=== PATIENT | male | born 1975 | race Caucasian/White ===

== ENCOUNTER 2021-11-03 21:02 | Observation (INO) | payer BC, SELFPAY ==
--- NOTE | ~2021-11-03 | CT_ITS ---
EXAMINATION: CT abdomen pelvis w con DATE: 11/03/2021 22:41 INDICATION: Abdominal pain TECHNIQUE: Computed tomography (CT) of the abdomen and pelvis was performed with 100 mL Omnipaque-350 intravenous contrast. Automated exposure control and iterative reconstruction technique were employe d. The dose-length product was 717.95 mGy-cm. COMPARISON: None FINDINGS: Lung bases are clear. Heart size is normal. Atherosclerotic coronary artery calcification. No pericar dial or pleural effusion. Small sliding-type hiatal hernia. Postoperative change of prior gastric byp ass procedure. Liver, gallbladder, spleen, pancreas, bilateral adrenal glands and kidneys are normal. Normal appendix. There is mild dilation of a a couple loops of the Gene limb of the gastric bypass w hich intermittently decrease to normal caliber proximal to the anastomosis with no discrete transitio n point to suggest obstruction. There is mild wall thickening along the root accounting for the degre e of distention. There is decompressed small bowel in either side of a likely transient small bowel i ntussusception in the central pelvis. Small amount of stool in the proximal colon to the mid to dista l colon relatively decompressed. Bladder is decompressed. No free intraperitoneal gas or fluid. No pa thologically enlarged abdominal or pelvic lymphadenopathy. IMPRESSION: 1. Mild dilation and mild wall thickening of the Gene limb of the gastric bypass procedure without di screte transition point to suggest obstruction is the be related to either an ileus or enteritis. 2. Likely transient small bowel intussusception in the pelvis without associated obstruction. Reviewed, dictated and finalized at location A. OR ERP CONSULTANT IMPRESSION: 1. Mild dilation and mild wall thickening of the Gene limb of the gastric bypas s procedure without discrete transition point to suggest obstruction is the be related to either an ileus or enteritis. 2. Likely transient small bowel intussusception in the pelvis without associate d obstruction.
[2021-11-03 21:04] VITALS: BP 130/81; PULSE 64; RESP 20; TEMP 36.3; O2SAT 100
[2021-11-03 21:20] LABS: Basophils Percent Auto 0.4 % (0.2-1.2); Eosinophils Absolute Auto 0.2 K/mm3 (0-0.3); Eosinophils Percent Auto 1.4 % (0-4.4); Hematocrit 36.3 % (42.0-52.0); Hemoglobin 12.2 g/dL (14.0-18.0); Immature Granulocyte Absolute 0.03 K/mm3 (0.00-0.031); Immature Granulocyte Percent A 0.3 % (0-0.5); Lymphocytes Absolute Auto 5.43 K/mm3 (0.9-3.2); Lymphocytes Percent Auto 49.2 % (18.3-44.2); Mean Corpuscular HGB Conc 33.6 g/dl (32-36); Mean Corpuscular Hemoglobin 31.4 pg (26-34); Mean Corpuscular Volume 93.3 fl (80-100); Mean Platelet Volume 9.3 fl (7.4-10.4); Monocytes Percent Auto 8.9 % (2.6-8.5); Neutrophils Absolute Auto 4.4 K/mm3 (1.3-6.7); Neutrophils Percent Auto 39.8 % (45.5-73.1); Platelet Count Result 255 k/mm3 (150-375); Red Blood Count 3.89 M/mm3 (4.6-6.20); Red Cell Distribution Width 12.3 % (11.5-14.5)
[2021-11-03 21:21] VITALS: O2SAT 100
[2021-11-03 21:22] VITALS: BP 130/77; O2SAT 100
[2021-11-03 21:29] LABS: Alanine Aminotransferase 31 U/L (4-50); Albumin Level 4.2 g/dL (3.5-5.1); Alkaline Phosphatase 73 U/L (38-126); Anion Gap 7 mmol/L (8-16); Aspartate Amino Transferase 44 U/L (17-59); Bilirubin,Total 0.3 mg/dL (0.2-1.3); Blood Urea Nitrogen 20 mg/dL (9-20); Carbon Dioxide 27 mmol/L (22-30); Chloride 104 mmol/L (98-107); Estimated CRCL calculation 61 ml/min; Estimated Glomerular Filt Rate 55; Glucose 199 mg/dL (65-110); Lipase 138 U/L (23-300); Potassium 3.8 mmol/L (3.4-5.0); Sodium 138 mmol/L (137-145)
[2021-11-03 21:30] VITALS: O2SAT 100
--- NOTE | 2021-11-03 21:47 | ED.NAVMDI ---
HPI - Nausea/Vomiting/Diarrhea General Chief complaint: Nausea/Vomiting/Diarrhea Stated complaint: vomiting Time Seen by Provider: 11/03/21 21:27 Source: patient Mode of arrival: ambulatory Limitations: no limitations History of Present Illness HPI Narrative: 46-year-old male presents today with complaints of nausea vomiting and abdominal pain that started after eating [employer]. Patient states he was only one who ate off of his plate but another person at his table did not have the same thing. As far as he is aware nobody also said. Patient with history of surgeries of abdomen, last surgery a couple months ago for a twisted bowel . Surgery was done in [facility] in [place]. Related Data Allergies Allergy/AdvReac Type Severity Reaction Status Date / Time NSAIDS (Non-Steroidal AdvReac upset Verified 11/03/21 21:46 Anti-Inflamma stomach Review of Systems Review of Systems: CONSTITUTIONAL: Denies fever, chills, or sweats. EYES: Denies visual changes, redness, or discharge. ENT: Denies rhinorrhea, congestion, sore throat, or otalgia. CARDIOVASCULAR: Denies chest pain, palpitations, or edema. RESPIRATORY: Denies cough or dyspnea. GASTROINTESTINAL: Positive for abdominal pain, nausea, and vomiting. Denies diarrhea. GENITOURINARY: Denies dysuria or hematuria. SKIN: Denies rash or itching. MUSCULOSKELETAL: Denies back pain, joint pain, or myalgia. NEUROLOGIC: Denies headache, numbness, dizziness, or weakness. PSYCHIATRIC: Denies anxiety or depression. [facility] Past Medical History Medical History (Updated 11/04/21 @ 01:42 by Luisa Sumner APRN) Gout Exam Narrative: GENERAL: Well-appearing, well-nourished, and in no acute distress. HEAD: Normocephalic, atraumatic. EYES: PERRLA and EOMI. ENT: Nares clear, no rhinorrhea or epistaxis. Mucous membranes moist. Oropharynx without tonsillar hypertrophy exudate or other lesions. Bilateral TMs pearly [place] nonbulging NECK: Supple. No adenopathy or masses. No carotid bruits or JVD CHEST: Clear to auscultation. No respiratory distress. No wheezes rales or rhonchi HEART: Regular rate and rhythm. No murmur heard. Normal peripheral pulses. ABDOMEN: Soft, tender to epigastric region, nondistended, normal active bowel sounds. EXTREMITIES: Normal range of motion. No edema. SKIN: Warm, dry, no rash. NEURO: No focal deficits. Alert and oriented x3. PSYCH: Normal mood and affect. Course Course Emergency Course: Patient without vomiting since Zofran given. Pain medications as needed. Currently pain tolerable. Labs and ct reviewed with patient and . Patient to be admitted for observation. All in agreement with plan of care. Consultations Consultation #1: Dr. Knight consulted. Galileo NG inserted, IVF, and admit with hospitalist. He will consult in the morning. Date: 11/04/21 Time: 12:30 Consultation #2: Case reviewed with Dr. Kitchen. Patient to be admitted as observation with surgery consult. Date: 11/04/21 Time: 01:48 Vital Signs Vital signs: Vital Signs Temperature 36.3 C L 11/03/21 21:04 Pulse Rate 64 11/03/21 21:04 Respiratory Rate 20 11/03/21 21:04 Blood Pressure 130/81 11/03/21 21:04 Pulse Oximetry 100 11/03/21 21:04 Temperature 36.3 C L 11/03/21 21:04 Pulse Rate 64 11/03/21 21:04 Respiratory Rate 20 11/03/21 21:04 Blood Pressure 130/77 11/03/21 21:22 Pulse Oximetry 100 11/03/21 21:30 MDM - Nausea/Vomiting/Diarrhea Differential Diagnosis Differential diagnosis: Likely food poisoning, gastroenteritis and other (SBO) Medical Records Attestation: I reviewed the patient's medical records. Lab Data Attestation: I reviewed the patient's lab results. Result diagrams: 11/03/21 21:14 11/03/21 21:14 Labs: Lab Results 11/03/21 11/03/21 11/03/21 Range/Units 21:14 21:14 21:51 WBC 11.0 H (4.5-10.0) K/mm3 RBC 3.89 L (4.6-6.20) M/mm3 Hgb 12.2 L (14.0-18.0) g/dL Hct 36.3 L
[2021-11-03 22:00] LABS: Add Urine Microscopic? NO; Appearance Urine Clear (Clear); Bilirubin Urine Negative (Negative); Blood Urine Negative (Negative); Color Urine Yellow (Yellow); Glucose Urine UA Negative (Negative); Ketones Urine Negative (Negative); Leukocyte Esterase Ur Negative LEU/UL (Negative); Nitrate Urine Negative (Negative); Protein Urine Negative (Negative); Specific Grav Ur 1.024 (1.001-1.035); Urobilinogen Urine Negative mg/dL (<2.0)
[2021-11-03] MEDS: SODIUM CHLORIDE 0.9% IV 1,000 ML 999 ML IV CONT (22:10)
[2021-11-03] MEDS: ONDANSETRON INJ 4 MG/2 ML VIAL IV PUSH (22:10)
[2021-11-03] MEDS: fentaNYL CITRATE INJ (*CRX) 100 MCG/2 ML VIAL 50 MCG IV PUSH ×2 (22:10→23:59)
[2021-11-03] MEDS: FAMOTIDINE 20 MG/2 ML VIAL IV PUSH (22:10)
[2021-11-04] MEDS: ONDANSETRON INJ 4 MG/2 ML VIAL IV PUSH (01:26)
[2021-11-04] MEDS: LACTATED RINGERS 1,000 ML 125 ML IV CONT ×2 (01:26→11:25)
[2021-11-04] MEDS: HYDROmorphone HCL INJ (*CRX) 1 MG/ML SYR 0.5 MG IV PUSH (01:26)
--- NOTE | 2021-11-04 01:33 | PC.NURSE ---
NG tube insertion deferred due to patient wanting to discuss with surgeon prior to procedure. Charge nurse aware, [employer] aware.
[2021-11-04 01:35] VITALS: BP 124/76; PULSE 57; RESP 18; TEMP 36.6; O2SAT 99
[2021-11-04 01:40] LABS: Lactic Acid Reflex 0.6 mmol/L (0.7-2.1)
--- NOTE | 2021-11-04 02:03 | ADMGEN ---
This patient, Lon Gaonaerland, was admitted to [facility] Surg Room 309-01. Patient/family oriented to hospital policies and general routines including ID bracelet, bed and alarms, visiting hours, pain management, procedures, bathroom and other care routines, personal items, smoking policy, room service/diet, and visiting hours. Information on how to activate the Rapid Response Team has been discussed. Patient/Family are encouraged to report perceived risks to care and to ask questions if they do not understand what they are told or what they should do.
[2021-11-04 03:00] VITALS: BMI 29.5
[2021-11-04 03:57] VITALS: BP 100/43; PULSE 58; RESP 16; TEMP 36.2; O2SAT 100
[2021-11-04 05:26] VITALS: BP 103/54; PULSE 58; RESP 16; TEMP 36.2; O2SAT 100
--- NOTE | 2021-11-04 12:27 | PM.CNGS ---
Assessment and Plan Assessment and plan (1) Abnormal CT of the abdomen: Code(s): R93.5 - Abnormal findings on diagnostic imaging of other abdominal regions, including retroperitoneum Status: Acute Assessment and Plan: CT scan reviewed and discussed with the patient in detail. There is mild dilation and wall thickening of the Gene limb suggesting either an ileus or gastroenteritis. Regardless, the patient is feeling much better and all symptoms have actually resolved by the time of my exam. His abdominal exam is benign. Will start clear liquids now and may advance his diet to full liquids this afternoon. If he is tolerating full liquids and remains asymptomatic this evening, then we are okay with him being discharged. He is eager for discharge considering he is out of town for work and was planning on going back today. We strongly encouraged that he follow-up with his surgeon back home as soon as possible to re-evaluate him. After discharge, he was instructed to advance to a soft gastric bypass diet and remain on this until he sees his surgeon. I have asked the nursing staff to have a disc made from Radiology with his CT scan to take to his appointment with the surgeon. If the patient begins having pain or vomiting again, then we may need to keep him overnight and consider an NG tube. Thank you for allowing us to see the patient in consultation. (2) Upper abdominal pain: Code(s): R10.10 - Upper abdominal pain, unspecified Status: Acute Assessment and Plan: Resolved. See plan above. (3) History of laparoscopy: Code(s): Z98.890 - Other specified postprocedural states Status: Inactive Assessment and Plan: Recent laparoscopic surgery at [facility] in [place], [place]. We will request records this morning from his previous surgeries. (4) Hypothyroid: Code(s): E03.9 - Hypothyroidism, unspecified Status: Chronic Assessment and Plan: Management per hospitalist. Additional Plan I have discussed the patient's case and plan of care with Dr. Knight. History of Present Illness Consult details Consult date: 11/04/21 Reason for consult: other (CT findings of mild dilation and wall thickening Gene limb without a transition point and transient small bowel intussusception without obstruction) Requesting physician: Luisa Sumner APRN Narrative: This is a 46-year-old male who was lives in [place] and is currently in this area traveling for work. He reports eating at [employer] yesterday for dinner and shortly after developing upper abdominal pain. He developed nausea and vomiting. His symptoms persisted, therefore he came into the ER for evaluation. He has a history of a laparoscopic Gene-en-Y gastric bypass 3 years ago that was done in [place], [place]. He also had another laparoscopic surgery done a few months ago at [facility] in [place], [place] for a ?twisted bowel?. He is unable to elaborate on this surgery but denies knowingly having a bowel resection. He states that the pain he has experienced on this occasion is different than the pain he had prior to the recent surgery. CT scan of the abdomen and pelvis in the ER showed mild dilation and mild wall thickening of the Gene limb of the gastric bypass procedure without discrete transition point to suggest obstruction, likely related to an ileus or enteritis. Also noted is a small bowel intussusception in the pelvis without associated obstruction, likely transient. [place] [address], lactic acid 0.6, and glucose 199. Urinalysis negative for urinary tract infection. The patient has been made NPO and admitted to the hospitalist service. Our service has been consulted for surgical evaluation due to the CT findings mentioned above. He is now seen on the medical floor. The patient denies any abdominal pain at this time. He denies nausea or vomiting since admission. He denies any recent di
[2021-11-04 14:00] VITALS: BP 105/53; PULSE 65; RESP 16; TEMP 36.4; O2SAT 98
[2021-11-04 16:01] VITALS: O2SAT 97
--- NOTE | 2021-11-04 16:18 | PM.IMHP ---
H&P: HPI History of Present Illness Date/Time: 11/04/21 16:18 Chief Complaint: Abdominal pain Narrative: 46-year-old male who presents to the ED today with the complaints of nausea vomiting and abdominal pain. His abdominal in pain was in periumbilical area. He he developed this shortly after eating for a while wings. His symptoms persisted and hence came to the ER for evaluation. He has a history of laparoscopic Gene-en-Y gastric bypass done [address] [facility]. He had had similar episode about few months ago with bowel obstruction that needed laparoscopic surgery. He was evaluated in the ED with CT scan of the abdomen and pelvis which showed mild dilatation and mild wall thickening of the rule HOLMAN of the gastric bypass procedure without discrete transition point to suggest obstruction likely related to Lisa ileus or enteritis. Also noted is a small bowel intussusception in the pelvis without associated obstruction likely transient. His lactic acid was normal mildly elevated WBC count UA was negative he is admitted for further evaluation and management. General surgery has already been consulted. Review of Systems Review of Systems: - CONSTITUTIONAL: Denies weight loss, fever and chills. - HEENT: Denies changes in vision and hearing - RESPIRATORY: Denies SOB and cough. - CV: Denies palpitations and CP. - GI: Reports abdominal pain, nausea, vomiting and denies diarrhea. - : Denies dysuria and urinary frequency. - MSK: Denies myalgia and joint pain. - SKIN: Denies rash and pruritus. - NEUROLOGICAL: Denies headache and syncope. - PSYCHIATRIC: Denies recent changes in mood. Denies anxiety and depression. All systems reviewed & are unremarkable except as noted in HPI and below Neurologic: Reports weakness Endocrine: Endocrine: Reports fatigue PMFSH Past Medical History Medical History Gout Hypothyroid Surgical History Surgical History (Updated 11/04/21 @ 13:38 by DOMINIC Hines) History of laparoscopy History of Gene-en-Y gastric bypass Family History Family History Other No pertinent family history Social History Social History Smoking status: Never smoker Alcohol intake: never Substance use: never Living arrangements: with family Additional living arrangements comments: Lives with his in [place] Occupation/Education: occupation Additional occupation/education comments: [employer] Gender identity (if verbalized by the patient): Male Spiritual care concerns: No Meds Home Medications and Allergies Home Medications Medication Instructions Recorded Confirmed Type allopurinol 300 mg PO DAILY 11/04/21 11/04/21 History levothyroxine [Euthyrox] 50 mcg PO DAILY 11/04/21 11/04/21 History probenecid-colchicine 500 tablet PO BID 11/04/21 11/04/21 History Allergies Allergy/AdvReac Type Severity Reaction Status Date / Time NSAIDS (Non-Steroidal AdvReac upset Verified 11/03/21 21:46 Anti-Inflamma stomach Vital Signs Vital Signs - 24 hr 11/03/21 21:04 11/03/21 21:21 11/03/21 21:22 Temperature 97.3 F L Pulse Rate 64 Respiratory Rate 20 Blood Pressure 130/81 130/77 Pulse Oximetry 100 100 100 11/03/21 21:30 11/04/21 01:35 11/04/21 03:57 Temperature 97.8 F 97.2 F L Pulse Rate 57 L 58 L Respiratory Rate 18 16 Blood Pressure 124/76 100/43 L Pulse Oximetry 100 99 100 11/04/21 05:26 11/04/21 14:00 11/04/21 16:01 Temperature 97.2 F L 97.6 F Pulse Rate 58 L 65 Respiratory Rate 16 16 Blood Pressure 103/54 L 105/53 L Pulse Oximetry 100 98 97 Exam Narrative: GENERAL: Well-appearing, well-nourished, and in no acute distress. HEAD: Normocephalic, atraumatic. EYES: PERRLA and EOMI. ENT: Nares clear, no rhinorrhea or epistaxis. Mucous membranes
--- NOTE | 2021-11-04 17:49 | PM.DS ---
DS: Admitting Diagnosis Discharge Date 11/04/2021 Admitting Diagnosis Abdominal pain DS: Discharge Diagnosis Discharge Diagnosis (1) Abnormal CT of the abdomen: Code(s): R93.5 - Abnormal findings on diagnostic imaging of other abdominal regions, including retroperitoneum Status: Acute Assessment and Plan: (2) Upper abdominal pain: Code(s): R10.10 - Upper abdominal pain, unspecified Status: Acute (3) History of laparoscopy: Code(s): Z98.890 - Other specified postprocedural states Status: Inactive (4) Hypothyroid: Code(s): E03.9 - Hypothyroidism, unspecified Status: Chronic DS: Summary Hospital Course Hospital Course: 46-year-old male who presents to the ED today with the complaints of nausea vomiting and abdominal pain. His abdominal in pain was in periumbilical area. He he developed this shortly after eating for a while wings. His symptoms persisted and hence came to the ER for evaluation. He has a history of laparoscopic Gene-en-Y gastric bypass done 3 years ago in [facility]. He had had similar episode about few months ago with bowel obstruction that needed laparoscopic surgery. He was evaluated in the ED with CT scan of the abdomen and pelvis which showed mild dilatation and mild wall thickening of the rule HOLMAN of the gastric bypass procedure without discrete transition point to suggest obstruction likely related to Lisa ileus or enteritis. Also noted is a small bowel intussusception in the pelvis without associated obstruction likely transient. His lactic acid was normal mildly elevated WBC count UA was negative he is admitted for further evaluation and management. General surgery has already been consulted # periumbilical abdominal pain. CT abdomen with mild dilation and mild wall thickening of the Gene limb of the gastric bypass procedure without discrete transition point to suggest obstruction likely ileus or enteritis. General surgery has been consulted. IV analgesics. IV antiemetic. NPO. IV fluids. His pain resolved with conservative management. General surgery advance the diet and was tolerating full liquid diet general surgery has okayed him to be discharged and to stay on full liquid and slowly advance to bariatric diet. He will follow-up with his surgeon with regard to the findings noted in our CT scan here for further evaluation and management. # transient small bowel intussusception in the pelvis # Hypothyroidism # gout # status post Gene-en-Y gastric bypass 2017 # DVT prophylaxis Lovenox # full code status Time Spent with Patient Time attestation: Total time spent providing and/or coordinating discharge services: 40 minutes Exam Narrative: GENERAL: Well-appearing, well-nourished, and in no acute distress. HEAD: Normocephalic, atraumatic. EYES: PERRLA and EOMI. ENT: Nares clear, no rhinorrhea or epistaxis. Mucous membranes moist NECK: Supple. No adenopathy or masses. No carotid bruits or JVD CHEST: Clear to auscultation. No respiratory distress. No wheezes rales or rhonchi HEART: Regular rate and rhythm. No murmur heard. Normal peripheral pulses. ABDOMEN: Soft, tender to epigastric region, nondistended, normal active bowel sounds. EXTREMITIES: Normal range of motion. No edema. SKIN: Warm, dry, no rash. NEURO: No focal deficits. Alert and oriented x3. PSYCH: Normal mood and affect. DS: Data Data Completed and Pending Labs on day of discharge: Labs from last 24 hours 11/04/21 11/03/21 11/03/21 01:25 21:51 21:14 WBC RBC Hgb Hct MCV MCH MCHC RDW Plt Count MPV Immature Gran % (Auto) Neut % (Auto) Lymph % (Auto) [place] % (Auto) Eos % (Auto) Baso % (Auto) Lymph # (Auto) [place] # (Auto) Eos # (Auto) Baso # (Auto) Abs Immat Gran (auto) Absolute Neuts (auto) Absolute Nucleated RBC Nucleated RBC % Sodium 138 Potassium 3.8 Chloride 104 Carbon
== END 2021-11-04 18:15 | disposition home or self-care (01) ==
LOC: ANHED 22:22 → ANH3MEDSUR 11-04 01:38
PROVIDERS: Emergency Medicine; Admitting Provider Internal Medicine; Emergency Provider Nurse Practitioner Family; Visit Provider Internal Medicine
DX: R93.5 Abnormal findings on diagnostic imaging of other abdominal regions, including retroperitoneum (principal); R11.2 Nausea with vomiting, unspecified; R19.7 Diarrhea, unspecified; K56.1 Intussusception; R10.10 Upper abdominal pain, unspecified; E03.9 Hypothyroidism, unspecified; M10.9 Gout, unspecified; Z98.890 Other specified postprocedural states; Z98.84 Bariatric surgery status
CPT/HCPCS: 36415; 74177; 80053; 81003; 83605; 83690; 85025; 96361; 96374; 96375; 96376; 99285; G0378; J0131; J1170; J2405; J3010; J7030; J7120; Q9967